=== PATIENT | female | born 1965 | race Hispanic/Latino ===

== ENCOUNTER → 2020-01-14 | Day surgery (SDC) | payer BC, OTHER ==
[~2020-01-14] MED LIST: CALCIUM600 MG PO; LEVOCETIRIZINE D5 MG PO; OMEGA 3 FISH O1 EACH PO; OSTEOBIFLEX; PROPOFOL IV EMULSION 10 MG/ML 20 ML VIAL ONE; VIT D PO; [UNRECOGNIZED DRUG - REMARK]
--- NOTE | 2020-01-14 07:15 | NUR ---
SPIRITUAL CARE - Pre-Surgery Assessment: Pt in bed. Pt reported supportive attention from family and friends. Intervention: Vision Therapist provided pastoral presence, hospitality, and sympathetic listening. Acquainted pt with availability of celery packer while hospitalized. Outcome: Pt expressed appreciation for visit. No need for follow up indicated at this time. JOSETTE Ortega Spiritual Care Department O: [phone]
[2020-01-14 09:16] VITALS: BP 116/78
== END | disposition home or self-care (01) ==
LOC: OR 06:17
PROVIDERS: ATTEND Internal Medicine Gastroenterology
DX: Z09 Encounter for follow-up examination after completed treatment for conditions other than malignant neoplasm (principal); Z86.010 Personal history of colon polyps; K57.30 Diverticulosis of large intestine without perforation or abscess without bleeding; K64.8 Other hemorrhoids; G47.33 Obstructive sleep apnea (adult) (pediatric); Z71.3 Dietary counseling and surveillance; E66.01 Morbid (severe) obesity due to excess calories; K21.9 Gastro-esophageal reflux disease without esophagitis; Z88.8 Allergy status to other drugs, medicaments and biological substances; Z91.041 Radiographic dye allergy status; Z01.810 Encounter for preprocedural cardiovascular examination; Z01.812 Encounter for preprocedural laboratory examination; Z11.59 Encounter for screening for other viral diseases; Z68.42 Body mass index [BMI] 45.0-49.9, adult
CPT/HCPCS: 45378; 93005; J2704; U0002